=== PATIENT | female | born 1940 | race Caucasian/White ===

== ENCOUNTER 2017-10-19 19:17 | Outpatient (REF) | payer MEDICARE, OTHER, SELFPAY ==
[2017-10-19 20:01] LABS: Anion Gap 10.3 mmol/L (3-11); BUN 35 mg/dL (7-18); CO2 28.7 mmol/L (21.0-32.0); CREATININE 1.33 mg/dL (0.55-1.02); Calcium 9.5 mg/dL (8.5-10.1); Chloride 103 mmol/L (98-107); Estimated GFR 38.49 (mL/min/1.73m2); Glucose 162 mg/dL (70-100); Potassium 4.1 mmol/L (3.5-5.1); Sodium 142 mmol/L (136-145)
== END 2017-10-19 19:37 ==
LOC: NCHCN 19:17
PROVIDERS: PCP Family Medicine; Visit Provider Family Medicine
DX: E11.9 Type 2 diabetes mellitus without complications (principal); I10 Essential (primary) hypertension; N18.3 Chronic kidney disease, stage 3 (moderate)
CPT/HCPCS: 80048; 83036

== ENCOUNTER 2017-10-29 00:57 | Outpatient (CLI) | payer MEDICARE, OTHER, SELFPAY ==
--- NOTE | 2017-10-29 10:48 | DI.RAD_ITS ---
SYMPTOM/DIAGNOSIS: LT SCIATICA, M54.32, BACK PAIN, M54.5 LUMBAR SPINE: AP and lateral views were obtained. There are five lumbar type vertebral bodies. There is a mild left convex scoliotic curvature present. There is disc space narrowing and endplate osteophytes at all levels of the lumbar spine. Vacuum discs are seen from L 2-3 through L 5-S 1. There are degenerative changes of the facets in the lower lumbar spine. No acute fractures or subluxations are seen. There is atherosclerosis of the abdominal aorta. IMPRESSION: Moderate degenerative changes in the lumbar spine.
--- NOTE | 2017-10-29 11:52 | DI.MRI_ITS ---
SYMPTOMS/DIAGNOSIS: LT SCIATICA, M54.32, LUMBAR BACK PAIN, M54.5 MRI OF THE LUMBAR SPINE: Sagittal T 1, sagittal T 2, sagittal STIR and axial T 1, T 2 and T 2 MSMA and coronal T 1 pulse sequences were performed. An accelerated protocol was carried out due to the patient's severe back pain. There is motion artifact and multiple repeats were carried out. There are multiple small endplate disc protrusions throughout the lumbar spine. Diminished disc signal and disc narrowing is also noted throughout. At L 1 - 2 there is mild to moderate facet joint DJD. Disc narrowing and diminished disc signal are noted. There is no disc protrusion and there is no evidence of significant spinal stenosis. At L 2 - 3 there is mild disc osteophyte prominence. There is severe facet joint DJD and no evidence of significant spinal stenosis. At L 3 - 4 a small central subligamentous disc protrusion is noted. There is a mild anterior listhesis of L 3 on L 4 and there is severe facet joint DJD resulting in moderately severe spinal canal stenosis and bilateral foraminal stenosis. At L 4 - 5 there is disc osteophyte complex prominence and severe DJD with resultant bilateral foraminal stenosis. At L 5 - S 1 mild disc osteophyte prominence is identified. There are severe facet joint degenerative changes and narrowing of the central spinal canal is identified and there is severe bilateral foraminal narrowing. There is no intrinsic abnormality involving the lower dorsal cord, conus or filum terminale. SUMMARY: Findings consistent with degenerative disc disease and severe DJD with resultant multi-level spinal stenosis. Please see the above discussion.
== END 2017-10-29 01:17 ==
PROVIDERS: PCP Family Medicine; Visit Provider Family Medicine
DX: M54.5 Low back pain (principal); M54.32 Sciatica, left side; M51.17 Intervertebral disc disorders with radiculopathy, lumbosacral region; M48.07 Spinal stenosis, lumbosacral region
CPT/HCPCS: 72100; 72148